=== PATIENT | female | born 1955 | race Caucasian/White ===

== ENCOUNTER 2024-06-28 07:55 | Day surgery (SDC) | payer MEDICARE, OTHER, SELFPAY ==
[2024-06-28] VITALS (10 sets, daily range): BP systolic 131–143; BP diastolic 78–87; PULSE 62–73; RESP 8–92; TEMP 36.1–36.5; O2SAT 12–97; BMI 30.8
--- NOTE | 2024-06-28 06:27 | P.HP_ITS ---
History of Present Illness History of Present Illness Chief complaint: [facility] [place] Narrative: 68 year old female here for left hammertoes pain. Patient has a longstanding history of neuropathy, which can be caused by treatment for breast cancer more than 11 years ago as well as stenosis in the lower back. Patient suffers from uneven gait and has been doing physical therapy to help correct the imbalance. Patient had hammertoes on both feet corrected 10 years ago, and the outcome on left side was less than optimal. Patient reports pain from residual deformities, especially with the second toe, and she is interested in having them revised due to inability to ambulate at ease, which negatively impacts activities of daily living. Patient denies n/v/f/c/sob/cp. [facility]LY [facility] Medical History (Updated 06/24/24 @ 14:01 by Caroline Ellis RN) Hx of atrial flutter (~2003) MERLE (obstructive sleep apnea) Heart failure with mildly reduced ejection fraction (HFmrEF) Anemia Kidney disease Arthritis Spinal stenosis Breast cancer (~2012) Neuropathy Hammertoe Surgical History (Updated 06/24/24 @ 14:08 by Caroline Ellis RN) Hx of bilateral mastectomy (2018) Hx of toe surgery Hx of abdominal surgery (2009) Hx of repair of right rotator cuff (1996) History of total bilateral knee replacement Hx of reduction mammoplasty History of nephrectomy (2021) History of surgery (~2013) History of surgery (~2013) Social History household members: spouse Meds Home Medications and Allergies Home Medications Medication Instructions Recorded Confirmed Type albuterol sulfate 90 mcg/actuation inh inhalation 06/23/24 History aerosol inhaler empagliflozin 10 mg tablet 10 mg PO 06/23/24 History (Jardiance) fluticasone 100 mcg-salmeterol 50 1 inh inhalation BID 06/23/24 06/23/24 History mcg/dose blistr powdr for inhalation (Wixela Inhub) gabapentin 300 mg tablet,extended 300 mg PO 06/23/24 History release 24 hr lisinopril 5 mg tablet 5 mg PO 06/23/24 History lovastatin 20 mg tablet 20 mg PO 06/23/24 History zolpidem 10 mg tablet 10 mg PO 06/23/24 History Allergies Allergy/AdvReac Type Severity Reaction Status Date / Time silver Allergy Severe FROM Unverified 02/25/18 12:57 TEGADERM AG MESH--BLISTER Beta-Blockers Allergy Bronchspasms, Verified 06/24/24 14:01 (Beta-Adrenergic Bloc bradycardia latex Allergy Verified 06/24/24 14:02 silver Allergy Verified 06/23/24 15:12 [From Tegaderm AG Mesh] morphine [MORPHINE] AdvReac Severe VOMITING Unverified 02/25/18 12:57 Exam Skin Other: left foot: decreased digital hair growth, tone, temperature, and turgor of skin. +2 pitting edema and moderate varicosities with hemosiderin deposition. Extrem Other: left foot: s/p hammertoes realignment with adductorvarus rotation toes 3 and 4 and abductovalgus rotation toe 2. Assessment & Plan Assessment & Plan narrative: 1. Left foot hardware pain 2. Left hammertoes 2-4 3. Left second metatarsophalangeal joint arthritis 4. Left foot acquired deformity and contracture Patient seen and evaluated. Surgical plan: left foot hardware removals, left hammertoes 2-4 revision with distal interphalangeal joint fusion, Andrez osteotomy second metatarsophalangeal joint, and capsulotomy third metatarsophalangeal joint. Risks and benefits of the procedure discussed with all questions answered to patient's satisfaction. Reviewed potential complications that may include but not limited to the following: DVT, failure to resolve all symptoms, infection, nerve injury, bleeding, recurrence, or wound. Reviewed surgical technique and general aftercare protocols with attention to importance of post-op weight bearing status. All questions answered to patient's satisfaction with no guarantees made. Patient verbalized understanding and agreed with surgical plan. RTC for post-op. Time-Based Coding :: [TOTAL MINUTES] spent with patient and on the chart (including review of chart, obtaining history, exam, reviewing outside data, placing orders, documenting exam and treatment plan, and counseling patient) on [DATE].
--- NOTE | 2024-06-28 06:27 | PM.PREOP ---
Pre-operative Note COVID-19 COVID-19 status: Not tested Interval Note History & Physical reviewed/Exam performed by Physician: Yes Changes to H&P: No
[2024-06-28] MEDS: LACTATED RINGERS 1,000 ML 42 ML IV ×2 (09:08→11:57)
[2024-06-28] MEDS: ALBUTEROL/IPRATROPIUM 3 ML AMPUL INH (09:08)
[2024-06-28] MEDS: CEFAZOLIN 2 GM/100 ML PREMIX 100 ML IV (10:09)
--- NOTE | 2024-06-28 10:18 | SUR.OPER ---
Supine on padded OR bed, head on pillow, arms secured on padded arm boards at <90 degrees abduction, legs uncrossed, safety belt at thigh, tape over blanket over non op leg, op leg positioned on bump
[2024-06-28] MEDS: BUPIVACAINE 0.5% (PF) 30 ML VIAL INJ (13:12)
[2024-06-28] MEDS: ACETAMINOPHEN 325 MG TABLET 650 MG PO (14:48)
[2024-06-28] MEDS: OXYCODONE IR 5 MG TABLET PO (15:07)
--- NOTE | 2024-06-28 15:30 | SUR.PHASEII ---
Patient reported bilateral shoulder stiffness and weakness-had difficulty raising her arms. Tape Edge Machine Operator equal and moderately strong. Patient medicated, repositioned and ice applied to shoulders. Dr. Tobias updated. No new orders. Patient reported her pain and movement is improving.
--- NOTE | 2024-06-28 15:55 | SUR.PHASEII ---
Patient continued to report improvement to shoulder pain and stiffness. She requested to discharge and dressed with assistance from her spouse.
--- NOTE | 2024-06-30 05:52 | PM.OP.1 ---
Operative Date/Time/Diagnoses Date of procedure: 06/28/24 Pre-op diagnosis: 1. Left foot painful hardware 2. Left foot hammertoes 2-4 3. Left foot second metatarsophalangeal joint arthritis Post-op diagnosis: same Procedure & Clinicians Procedure: 1. Left foot hardware removal 2. Left foot hammertoes 2-4 revised corrections 3. Left foot second metatarsophalangeal joint Andrez osteotomy Same procedure as scheduled: Yes (Except CPT 37299 not performed. ) Indications: Hardware in misaligned positions requiring removal, followed by fusion at distal interphalangeal joints to remove the painful acquired deformities and decompression of second metatarsophalangeal joint, which also restores the parabola of the foot. Surgeon: Joey Tobias Click Yes if Unassisted: Yes Anesthesia Type: Sedation Operative Notes Findings: Multiples planes of deformities to toes 2-4 corrected to near anatomical position. Closure Type: primary Specimen(s): none sent Applied: implant(s) (Arthrex Compression FT Screws and Snap-Off Pins) Estimated Blood Loss (mL): 25 Blood products transfused: none Tourniquet time (min): 168 Procedure in detail: Patient was identified and brought into the operating room. Patient was in supine position for the entire procedure. Regional block was performed by anesthesia prior to entry. Deep sedation was administered in the operating room. An ankle tourniquet was applied. Left lower extremity was prepped and draped in the usual sterile fashion, followed by official timeout with the surgical team all in agreement. Attention was directed to the left forefoot. An Esmarch was used for exsanguination, and the tourniquet was inflated to 225 mmHg. Elliptical incisions was drawn out for toes 2, 3, and 4 to de-rotate the valgus deformity of toe 2 and varus deformity of toes 3 and 4. A mini c-arm was used to identify the position of implanted hardware for fusion of proximal phalanx from previous procedure. For each of the toes, a #15 scalpel was used to make the incision from skin down to the bone with care to reflect and retract encountered soft tissue structures. A sagittal saw and an osteotome were used to cut and expose the pin, and a needle star route mail driver was used to toggle them out respectively. Attention was then directed to the distal interphalangeal joint of toes 2, 3, and 4, which would be a separate procedure site. Decision was made to prepare the joint using a curette for removal of subchondral bone, and a arthrodesis of joint was carried out using Arthrex FT Screws. A fluoroscopy was used to verify the position and alignment. Attention was then directed to the second metatarsophalangea joint. A curvilinear incision was carried out using a #15 scalpel down to the joint. After adequate exposed of the flattened and enlarged metatarsal head, a sagittal saw was used to make appropriate cut for Andrez osteotomy for shifting the capital fragment proximally to near anatomical parabola as visualized on fluoroscopy.. Fixation was carried out using 2 Arthrex Snap-Off Screws. All surgical site were irrigated with copious saline. Tourniquet was released for a total of 168 minutes, and capillary fill time was visualized in all toes. To note, it was deflated at 2 hour alejandrina. All procedure sites were closed from deep to superficial using a combination of 4-0 vicryl, 3-0 vicryl, 4-0 nylon, and 3-0 nylon. Incision sites were covered with iodine mixed with Adaptic and bulky sterile dressings. A posterior splint was made over well-padded surfaces and secured using elastic bandage wraps. Patient tolerated procedure without complication and was transferred to PACU hemodynamically stable. Post-operative Condition: stable Disposition: same day surgery Plan for aftercare: NWB to surgical limb. Elevate above heart on 2+ pillows. Ice behind knee 15 minutes/hour when awake. Take medications as directed. Return to clinic as scheduled.
== END 2024-06-28 15:45 | disposition home or self-care (01) ==
PROVIDERS: Family Provider Family Medicine; PCP Family Medicine; Referring Provider Podiatrist Foot & Ankle Surgery; Visit Provider Podiatrist Foot & Ankle Surgery
PROC: (CPT 28285; principal; 2024-06-28 09:15)
DX: M19.072 Primary osteoarthritis, left ankle and foot (principal); T84.84XD Pain due to internal orthopedic prosthetic devices, implants and grafts, subsequent encounter; G89.18 Other acute postprocedural pain; M20.42 Other hammer toe(s) (acquired), left foot; M20.5X2 Other deformities of toe(s) (acquired), left foot
CPT/HCPCS: 28308; 20680 ×3; 28285 ×3; 64450; C1713; J0690; J1100; J2250; J2405; J2704; J3010